=== PATIENT | male | born 1990 | race African-American/Black ===

== ENCOUNTER 2017-12-17 16:23 | Emergency (ER) | payer MEDICAID ==
[~2017-12-17] VITALS: Ht 188 cm; Wt 74.1 kg
[~2017-12-17 16:23] MED LIST: CYCL-394 PO; DICY10CA88 PO; IMO2C PO; ZOF4T PO
[2017-12-17 17:00] LABS: BASOPHILS # (AUTO) 0.1 X10'3 (0-0.2); BASOPHILS % (AUTO) 0.4 % (0-1); EOSINOPHILS % (AUTO) 0.1 % (0-6); HEMATOCRIT 41.6 % (42.0-52.0); HEMOGLOBIN 14.1 g/dl (14.0-17.9); LYMPHOCYTES # (AUTO) 1.3 X10'3 (1.1-4.8); LYMPHOCYTES % (AUTO) 8.4 % (21-51); MEAN CORPUSCULAR HEMOGLOBIN 31.7 PG (27.0-31.0); MEAN CORPUSCULAR VOLUME 93.3 FL (78-98); MEAN PLATELET VOLUME 6.7 FL (7.4-10.4); MONOCYTES # (AUTO) 0.6 X10'3 (0-0.9); MONOCYTES % (AUTO) 4.1 % (2-12); NEUTROPHILS # (AUTO) 13.4 X10'3 (1.8-7.7); PLATELET COUNT 249 X10'3 (140-440); RED BLOOD COUNT 4.45 X10'6 (4.70-6.10); RED CELL DISTRIBUTION WIDTH 14.2 % (11.5-14.5); WHITE BLOOD COUNT 15.4 X10'3 (4.5-11.0)
[2017-12-17 17:14] LABS: ALANINE AMINOTRANSFERASE 23 U/L (12-78); ALBUMIN 3.7 G/DL (3.4-5.0); ALBUMIN/GLOBULIN RATIO 1.1 (1.1-1.5); ALKALINE PHOSPHATASE 83 IU/L (46-116); ANION GAP 11 (8-16); ASPARTATE AMINO TRANSFERASE 16 U/L (10-37); BILIRUBIN,TOTAL 0.4 MG/DL (0.1-1.0); BLOOD UREA NITROGEN 14 MG/DL (7-18); BUN/CREATININE RATIO 11.6 (5.4-32.0); CALCIUM 8.4 MG/DL (8.5-10.1); CHLORIDE 101 MMOL/L (99-107); CREATININE 1.21 MG/DL (0.60-1.10); GLUCOSE 170 MG/DL (70-104); POTASSIUM 3.7 MMOL/L (3.5-5.1); SODIUM 139 MMOL/L (135-145); TOTAL CARBON DIOXIDE 27.3 MMOL/L (24-32); eGFR 86 ML/MIN
[2017-12-17 17:40] LABS: CLARITY,URINE CLEAR (Clear); COLOR,URINE YELLOW (Yellow); GLUCOSE, URINE NEGATIVE (Neg); KETONES,URINE 40 mg/dl (Neg); LEUKOCYTE ESTERASE ,URINE NEGATIVE (Neg); NITRITES, URINE NEGATIVE (Neg); OCCULT BLOOD,URINE NEGATIVE (Neg); PROTEIN,URINE TRACE mg/dl (Neg)
[2017-12-17 17:42] LABS: UA COLLECTION TYPE URINAL
[2017-12-17 17:48] LABS: WBC,URINE 0-4 /HPF (0-4)
[2017-12-17 17:49] LABS: BACTERIA,URINE NONE SEEN /HPF (Neg); RBC,URINE 0-2 /HPF (0-2); SQUAMOUS EPITHELIAL CELL,UR NONE SEEN /LPF (FEW)
[2017-12-17 17:50] LABS: URINE AMPHETAMINE SCREEN POSITIVE (Neg); URINE BARBITUATE SCREEN NEGATIVE (Neg); URINE BENZODIAZEPINES SCREEN NEGATIVE (Neg); URINE CANNABINOID SCREEN POSITIVE (Neg); URINE COCAINE SCREEN NEGATIVE (Neg); URINE METHADONE SCREEN NEGATIVE (Neg); URINE OPIATE SCREEN NEGATIVE (Neg); URINE PHENCYCLIDINE SCREEN NEGATIVE (Neg)
[2017-12-17 18:17] VITALS: BP 102/54
== END 2017-12-17 18:18 | disposition home or self-care (01) ==
LOC: ER 16:23
DX: R55 Syncope and collapse (principal); G89.29 Other chronic pain; F12.10 Cannabis abuse, uncomplicated; F15.10 Other stimulant abuse, uncomplicated; Z56.0 Unemployment, unspecified
CPT/HCPCS: 36415; 71045; 80053; 80305; 81001; 85025; 93005; 99285

== ENCOUNTER 2020-03-10 15:32 | Emergency (ER) | payer MEDICAID ==
[~2020-03-10] VITALS: Ht 188 cm; Wt 75.0 kg
[2020-03-10 16:11] VITALS: BP 135/69
[2020-03-10] MEDS ORDERED: LORA-269 PO (16:25)
== END 2020-03-10 16:32 | disposition home or self-care (01) ==
LOC: ER 15:32
DX: F15.10 Other stimulant abuse, uncomplicated (principal); G89.29 Other chronic pain; F17.200 Nicotine dependence, unspecified, uncomplicated; F12.90 Cannabis use, unspecified, uncomplicated; Z56.0 Unemployment, unspecified; Z88.6 Allergy status to analgesic agent; Z79.899 Other long term (current) drug therapy
CPT/HCPCS: 99283

== ENCOUNTER 2020-05-28 22:11 | Emergency (ER) | payer MEDICAID ==
[~2020-05-28] VITALS: Ht 188 cm; Wt 64.7 kg
[~2020-05-28 22:11] MED LIST changes: +LORA-269 PO
[2020-05-28 22:38] LABS: CLARITY,URINE CLOUDY (Clear); COLOR,URINE YELLOW (Yellow); GLUCOSE, URINE NEGATIVE (Neg); KETONES,URINE NEGATIVE (Neg); LEUKOCYTE ESTERASE ,URINE SMALL (Neg); NITRITES, URINE NEGATIVE (Neg); OCCULT BLOOD,URINE TRACE-INTACT (Neg); PROTEIN,URINE 30 mg/dl (Neg); UROBILINOGEN,URINE 0.2 E.U/dL (0.2-1.0)
[2020-05-28 22:39] LABS: UA COLLECTION TYPE VOIDED
[2020-05-28 22:46] LABS: BACTERIA,URINE FEW /HPF (Neg); CAL OXALATE CRYSTALS FEW /HPF (NEGATIVE); RBC,URINE 0-2 /HPF (0-2); SQUAMOUS EPITHELIAL CELL,UR FEW /LPF (FEW); WBC,URINE 50-100 /HPF (0-4)
[2020-05-28] MEDS ORDERED: azithromycin 250mg tablet PO ONE (22:55)
[2020-05-28] MEDS ORDERED: CefTRIAXone 250MG IM Kit w/LIDOcaine IM ONE (22:55)
[2020-05-28 23:52] VITALS: BP 127/88
== END 2020-05-28 23:53 | disposition home or self-care (01) ==
LOC: ER 22:11
DX: N34.2 Other urethritis (principal); R10.2 Pelvic and perineal pain; G89.29 Other chronic pain; F12.90 Cannabis use, unspecified, uncomplicated; F15.90 Other stimulant use, unspecified, uncomplicated; Z56.0 Unemployment, unspecified; Z59.0 Homelessness; Z88.8 Allergy status to other drugs, medicaments and biological substances; Z79.899 Other long term (current) drug therapy
CPT/HCPCS: 36415; 81001; 87088; 87491; 87591; 96372; 99283; J0696

== ENCOUNTER 2020-10-04 16:54 | Emergency (ER) | payer MEDICAID ==
[~2020-10-04] VITALS: Ht 188 cm; Wt 71.8 kg
[2020-10-04 17:10] VITALS: BP 128/84
== END 2020-10-04 18:12 | disposition home or self-care (01) ==
LOC: ER 16:54
DX: Z02.89 Encounter for other administrative examinations (principal); G89.29 Other chronic pain; F12.90 Cannabis use, unspecified, uncomplicated; F15.90 Other stimulant use, unspecified, uncomplicated; Z56.0 Unemployment, unspecified; Z59.0 Homelessness; Z88.8 Allergy status to other drugs, medicaments and biological substances; Z79.899 Other long term (current) drug therapy
CPT/HCPCS: 99281

== ENCOUNTER 2021-03-18 21:29 | Emergency (ER) | payer MEDICAID ==
[~2021-03-18] VITALS: Ht 190.5 cm; Wt 75.0 kg
[2021-03-18] MEDS ORDERED: morphine 4 MG/ML inj SYRINge IV ONE (21:45)
[2021-03-18] MEDS ORDERED: ondansetron/PF 4mg/2ml inj IV ONE (21:45)
[2021-03-18] MEDS ORDERED: fentaNYL/PF 50MCG/1 ML 2ML syringe IV ONE (22:00)
[2021-03-18] MEDS ORDERED: etomidate 2mg/ml inj. IV ONE (22:05)
[2021-03-18] MEDS ORDERED: ONDA4TAB6 PO (22:10)
[2021-03-18] MEDS ORDERED: HYDR-3964 PO (22:10)
[2021-03-18] MEDS ORDERED: ondansetron/PF 4mg/2ml inj IM ONE (22:35)
[2021-03-18 22:58] VITALS: BP 139/70
[2021-03-19] MEDS ORDERED: HYDROcodone/acetaminophen 10/325mg tab PO ONE (00:25)
== END 2021-03-19 02:52 | disposition home or self-care (01) ==
LOC: ER 21:30
DX: S82.851A Displaced trimalleolar fracture of right lower leg, initial encounter for closed fracture (principal); M25.571 Pain in right ankle and joints of right foot; G89.29 Other chronic pain; F12.90 Cannabis use, unspecified, uncomplicated; F15.90 Other stimulant use, unspecified, uncomplicated; Z56.0 Unemployment, unspecified; Z59.0 Homelessness; Z88.8 Allergy status to other drugs, medicaments and biological substances; Z79.899 Other long term (current) drug therapy; V00.131A Fall from skateboard, initial encounter; Y93.89 Activity, other specified; Y92.89 Other specified places as the place of occurrence of the external cause; Y99.8 Other external cause status
CPT/HCPCS: 27818; 73560; 73600; 73610; 94799; 96372; 96374; 96375; 99152; 99153; 99285; J2270; J2405; J3010; 94760